=== PATIENT | female | born 1985 | race African-American/Black ===

== ENCOUNTER 2017-09-17 12:06 | Emergency (ER) | payer MEDICAID, OTHER ==
[~2017-09-17] VITALS: Ht 172.7 cm; Wt 87.0 kg
[2017-09-17] MEDS ORDERED: SODIUM CHLORIDE 0.9% 1,000 ML IV ONE (15:00)
[2017-09-17 15:29] LABS: BASOPHILS % 0.6 % (0.0-2.0); EOSINOPHILS % 0.3 % (0.0-5.0); HEMATOCRIT. 34.8 % (36.0-48.0); HEMOGLOBIN. 11.1 g/dL (12.0-16.0); LYMPHOCYTES % 33.2 % (20.0-50.0); MEAN CORPUSCULAR HEMOGLOBIN 27.8 pg (28.0-32.0); MEAN CORPUSCULAR VOLUME 87.1 fL (81.0-99.0); MEAN PLATELET VOLUME 7.6 fl (7.4-10.4); MONOCYTES % 5.5 % (2.0-8.0); NEUTROPHILS % 60.4 % (40.0-76.0); PLATELET 307 x1000/uL (130-400); RED CELL DISTRIBUTION WIDTH 15.2 % (11.6-14.6)
[2017-09-17 15:32] LABS: CHLORIDE 106 mEq/L (98-107)
[2017-09-17 15:37] LABS: CARBON DIOXIDE 27 mEq/L (21-32)
[2017-09-17] MEDS ORDERED: HYDROCODONE/ACETAMINOPHEN 5/325MG TABLET PO ONE (21:00)
[2017-09-17] MEDS ORDERED: AMOXICILLIN/POTASSIUM CLAVULANATE 875/125MG TAB PO ONE (21:00)
[2017-09-17 21:50] VITALS: BP 111/81
== END 2017-09-17 21:59 | disposition home or self-care (01) ==
LOC: ER 15:02
DX: S63.501A Unspecified sprain of right wrist, initial encounter (principal); L03.113 Cellulitis of right upper limb; R55 Syncope and collapse; R06.09 Other forms of dyspnea; W18.39XA Other fall on same level, initial encounter; Y93.89 Activity, other specified; Y92.89 Other specified places as the place of occurrence of the external cause; Y99.8 Other external cause status
CPT/HCPCS: 29125; 36415; 73110; 80048; 81025; 85025; 93005; 96360; 99285; Z7610; J7030

== ENCOUNTER 2019-07-07 16:56 | Emergency (ER) | payer MEDICAID, OTHER ==
[~2019-07-07] VITALS: Ht 175.3 cm; Wt 91.0 kg
[2019-07-07] MEDS ORDERED: SODIUM CHLORIDE 0.9% 1,000 ML IV ONE (17:42)
[2019-07-07] MEDS ORDERED: LORAZEPAM 1MG TABLET PO ONE (17:45)
[2019-07-07 18:11] LABS: BASOPHILS % 0.7 % (0.0-2.0); EOSINOPHILS % 0.1 % (0.0-5.0); HEMATOCRIT. 33.2 % (36.0-48.0); HEMOGLOBIN. 10.9 g/dL (12.0-16.0); LYMPHOCYTES % 22.1 % (20.0-50.0); MEAN CORPUSCULAR HEMOGLOBIN 28.6 pg (28.0-32.0); MEAN CORPUSCULAR VOLUME 87.2 fL (81.0-99.0); MEAN PLATELET VOLUME 7.7 fl (7.4-10.4); MONOCYTES % 5.2 % (2.0-8.0); NEUTROPHILS % 71.9 % (40.0-76.0); PLATELET 293 x1000/uL (130-400); RED BLOOD CELL COUNT 3.81 mill/uL (4.2-5.4); RED CELL DISTRIBUTION WIDTH 15.3 % (11.6-14.6)
[2019-07-07 18:18] LABS: CHLORIDE 108 mEq/L (98-107)
[2019-07-07 18:22] LABS: HCG SCREEN POSITIVE
[2019-07-07 21:22] LABS: CLARITY URINE CLEAR (CLEAR); COLOR URINE YELLOW (YELLOW); KETONES URINE 1+ (NEGATIVE); LEUKOCYTE ESTERASE URINE NEGATIVE (NEGATIVE); NITRITE URINE NEGATIVE (NEGATIVE); OCCULT BLOOD URINE NEGATIVE (NEGATIVE); PH URINE 7.5 (4.5-8.0); PROTEIN URINE TRACE (NEGATIVE); SPECIFIC GRAVITY URINE 1.007 (1.005-1.030); UROBILINOGEN URINE 0.2 E.U./dL (0.2-1.0)
[2019-07-07 22:30] VITALS: BP 115/82
[2019-07-08 08:45] LABS: BASOPHILS % 0.4 % (0.0-2.0); EOSINOPHILS % 0.3 % (0.0-5.0); HEMOGLOBIN. 10.2 g/dL (12.0-16.0); LYMPHOCYTES % 22.9 % (20.0-50.0); MEAN CORPUSCULAR HEMOGLOBIN 28.5 pg (28.0-32.0); MEAN CORPUSCULAR VOLUME 86.7 fL (81.0-99.0); MEAN PLATELET VOLUME 7.8 fl (7.4-10.4); MONOCYTES % 5.7 % (2.0-8.0); NEUTROPHILS % 70.7 % (40.0-76.0); PLATELET 262 x1000/uL (130-400); RED BLOOD CELL COUNT 3.58 mill/uL (4.2-5.4); RED CELL DISTRIBUTION WIDTH 15.1 % (11.6-14.6)
[2019-07-08 08:50] LABS: CHLORIDE 109 mEq/L (98-107)
== END 2019-07-07 22:46 | disposition home or self-care (01) ==
LOC: ER 16:56
DX: O26.892 Other specified pregnancy related conditions, second trimester (principal); K29.70 Gastritis, unspecified, without bleeding; O99.342 Other mental disorders complicating pregnancy, second trimester; F41.9 Anxiety disorder, unspecified; O99.012 Anemia complicating pregnancy, second trimester; Z3A.22 22 weeks gestation of pregnancy
CPT/HCPCS: 36415; 76805; 80053; 81003; 83690; 84702; 84703; 85025; 86850; 86900; 86901; 96360; 96361; 99284; J7030

== ENCOUNTER 2019-07-08 01:27 | Inpatient (IN) | payer MEDICAID ==
[~2019-07-08] VITALS: Ht 175.3 cm; Wt 127.0 kg
[2019-07-08] MEDS ORDERED: SODIUM CHLORIDE 0.9% 1,000 ML IV ONE (09:20)
[2019-07-08 09:41] LABS: BASOPHILS % 0.4 % (0.0-2.0); EOSINOPHILS % 0.2 % (0.0-5.0); HEMATOCRIT. 29.4 % (36.0-48.0); HEMOGLOBIN. 9.8 g/dL (12.0-16.0); LYMPHOCYTES % 24.2 % (20.0-50.0); MEAN CORPUSCULAR HEMOGLOBIN 28.7 pg (28.0-32.0); MEAN PLATELET VOLUME 7.8 fl (7.4-10.4); MONOCYTES % 7.1 % (2.0-8.0); NEUTROPHILS % 68.1 % (40.0-76.0); PLATELET 284 x1000/uL (130-400); RED BLOOD CELL COUNT 3.43 mill/uL (4.2-5.4); RED CELL DISTRIBUTION WIDTH 15.5 % (11.6-14.6)
[2019-07-08 09:48] LABS: CHLORIDE 109 mEq/L (98-107)
[2019-07-08] MEDS ORDERED: ONDANSETRON HCL 4MG/2ML INJ IV PRN (12:30)
[2019-07-08 13:07] LABS: PHOSPHORUS 3.4 mg/dL (2.5-4.9)
[2019-07-08 14:55] VITALS: BP 104/48
[2019-07-08 15:59] VITALS: BP 104/48
[2019-07-08 20:38] VITALS: BP 108/51
[2019-07-08] MEDS: ACETAMINOPHEN 325MG TABLET PO PRN (21:22)
[2019-07-09 00:32] VITALS: BP 95/54
[2019-07-09 04:00] VITALS: BP 106/40
[2019-07-09 05:44] LABS: BASOPHILS % 0.5 % (0.0-2.0); EOSINOPHILS % 0.8 % (0.0-5.0); HEMATOCRIT. 27.7 % (36.0-48.0); HEMOGLOBIN. 9.3 g/dL (12.0-16.0); MEAN CORPUSCULAR HEMOGLOBIN 28.6 pg (28.0-32.0); MEAN CORPUSCULAR VOLUME 85.4 fL (81.0-99.0); MEAN PLATELET VOLUME 7.8 fl (7.4-10.4); NEUTROPHILS % 53.7 % (40.0-76.0); PLATELET 265 x1000/uL (130-400); RED BLOOD CELL COUNT 3.24 mill/uL (4.2-5.4); RED CELL DISTRIBUTION WIDTH 15.4 % (11.6-14.6)
[2019-07-09 06:01] LABS: CHLORIDE 108 mEq/L (98-107)
[2019-07-09 06:10] LABS: LDL CHOLESTEROL 96 mg/dL (5-100)
[2019-07-09 06:11] LABS: HDL CHOLESTEROL 37 mg/dL (40-59)
[2019-07-09 08:00] VITALS: BP 102/53
[2019-07-09] MEDS: ACETAMINOPHEN 325MG TABLET PO PRN (09:44)
[2019-07-09 12:00] VITALS: BP 111/59
[2019-07-09] MEDS ORDERED: IPRATROPIUM/ALBUTEROL 0.5-3(2.5)MG/3ML NEB HHN PRN (13:00)
[2019-07-09] MEDS: PRENATAL VIT/FE FUMARATE/FA TABLET PO SCH (15:29)
[2019-07-09 16:00] VITALS: BP 117/70
[2019-07-09] MEDS: DOCUSATE SODIUM 100MG CAPSULE PO SCH (16:52)
[2019-07-09 20:21] LABS: TOTAL IRON BINDING CAPACITY 384 ug/dL (250-450)
[2019-07-09 20:52] VITALS: BP 105/48
[2019-07-10 00:53] VITALS: BP 106/61
[2019-07-10 04:00] VITALS: BP 99/43
[2019-07-10 08:00] VITALS: BP 109/58
[2019-07-10] MEDS: DOCUSATE SODIUM 100MG CAPSULE PO SCH ×2 (10:08→19:33)
[2019-07-10] MEDS: PRENATAL VIT/FE FUMARATE/FA TABLET PO SCH (10:13)
[2019-07-10 12:00] VITALS: BP 112/58
[2019-07-10] MEDS: ACETAMINOPHEN 325MG TABLET PO PRN (14:57)
[2019-07-10 16:00] VITALS: BP 114/78
[2019-07-10 19:09] VITALS: BP 114/72
== END 2019-07-10 19:35 | disposition home or self-care (01) | DRG 566 ==
LOC: ER 01:27 → EDBEDREQ 12:21 → ENRESERV 13:42 → 6WST 14:52
PROVIDERS: ADMIT Internal Medicine; ATTEND Internal Medicine
DX: O99.512 Diseases of the respiratory system complicating pregnancy, second trimester (principal); J96.00 Acute respiratory failure, unspecified whether with hypoxia or hypercapnia; O99.012 Anemia complicating pregnancy, second trimester; J30.9 Allergic rhinitis, unspecified; Z3A.22 22 weeks gestation of pregnancy; M94.0 Chondrocostal junction syndrome [Tietze]; D64.9 Anemia, unspecified; I07.1 Rheumatic tricuspid insufficiency
CPT/HCPCS: 36415; 78580; 80061; 82728; 83540; 83550; 83735; 84100; 84443; 84484; 85379; 86850; 86900; 93005; 93306; 93970; 99285; J2405; J7030

== ENCOUNTER 2019-08-21 14:27 | Observation (INO) | payer MEDICAID ==
[~2019-08-21] VITALS: Ht 175.3 cm; Wt 104.3 kg
[2019-08-21] MEDS ORDERED: PREN1TAB78 MT (14:40)
[2019-08-21] MEDS ORDERED: SODIUM CHLORIDE 0.9% 1,000 ML IV SCH (15:00)
[2019-08-21 15:31] LABS: BASOPHILS % 0.5 % (0.0-2.0); EOSINOPHILS % 0.2 % (0.0-5.0); HEMATOCRIT. 32.5 % (36.0-48.0); HEMOGLOBIN. 10.5 g/dL (12.0-16.0); MEAN CORPUSCULAR HEMOGLOBIN 28.5 pg (28.0-32.0); MEAN CORPUSCULAR VOLUME 88.2 fL (81.0-99.0); MEAN PLATELET VOLUME 8.3 fl (7.4-10.4); MONOCYTES % 5.4 % (2.0-8.0); NEUTROPHILS % 73.9 % (40.0-76.0); PLATELET 272 x1000/uL (130-400); RED BLOOD CELL COUNT 3.69 mill/uL (4.2-5.4); RED CELL DISTRIBUTION WIDTH 16.2 % (11.6-14.6)
[2019-08-21] MEDS ORDERED: ACETAMINOPHEN 325MG TABLET PO NR (16:15)
== END 2019-08-21 16:38 | disposition home or self-care (01) ==
LOC: 8 EST LDRP 14:27
PROVIDERS: ADMIT Obstetrics & Gynecology; ATTEND Obstetrics & Gynecology
DX: O26.892 Other specified pregnancy related conditions, second trimester (principal); R42 Dizziness and giddiness; O21.2 Late vomiting of pregnancy; Z3A.27 27 weeks gestation of pregnancy
CPT/HCPCS: 36415; 85025; 96360; 99281; G0378; J7030

== ENCOUNTER 2019-08-21 18:34 | Emergency (ER) | payer MEDICAID ==
[~2019-08-21] VITALS: Ht 175.3 cm; Wt 104.0 kg
[~2019-08-21 18:34] MED LIST: PREN1TAB78 MT
[2019-08-21] MEDS ORDERED: SODIUM CHLORIDE 0.9% 1,000 ML IV ONE (21:16)
[2019-08-21] MEDS ORDERED: FAMOTIDINE 20MG/2ML VIAL IV STA (21:16)
[2019-08-21] MEDS ORDERED: MAGNESIUM/ALUMINUM HYDROXIDE/SIMETHICONE 30ML UDC PO ONE (21:30)
[2019-08-21 23:44] LABS: CHLORIDE 108 mEq/L (98-107)
[2019-08-21 23:47] LABS: BASOPHILS % 0.5 % (0.0-2.0); EOSINOPHILS % 0.2 % (0.0-5.0); HEMATOCRIT. 33.8 % (36.0-48.0); HEMOGLOBIN. 10.8 g/dL (12.0-16.0); LYMPHOCYTES % 31.3 % (20.0-50.0); MEAN CORPUSCULAR HEMOGLOBIN 28.7 pg (28.0-32.0); MEAN CORPUSCULAR VOLUME 89.4 fL (81.0-99.0); MEAN PLATELET VOLUME 8.5 fl (7.4-10.4); MONOCYTES % 5.4 % (2.0-8.0); NEUTROPHILS % 62.6 % (40.0-76.0); PLATELET 286 x1000/uL (130-400); RED BLOOD CELL COUNT 3.78 mill/uL (4.2-5.4); RED CELL DISTRIBUTION WIDTH 16.4 % (11.6-14.6)
[2019-08-22 01:30] LABS: CLARITY URINE CLOUDY (CLEAR); COLOR URINE YELLOW (YELLOW); KETONES URINE 4+ (NEGATIVE); LEUKOCYTE ESTERASE URINE NEGATIVE (NEGATIVE); NITRITE URINE NEGATIVE (NEGATIVE); OCCULT BLOOD URINE NEGATIVE (NEGATIVE); PROTEIN URINE TRACE (NEGATIVE); SPECIFIC GRAVITY URINE 1.034 (1.005-1.030)
[2019-08-22 01:48] VITALS: BP 88/65
== END 2019-08-22 01:57 | disposition home or self-care (01) ==
LOC: ER 18:34
DX: K29.70 Gastritis, unspecified, without bleeding (principal); K21.0 Gastro-esophageal reflux disease with esophagitis; R06.02 Shortness of breath; F41.9 Anxiety disorder, unspecified
CPT/HCPCS: 36415; 80053; 81003; 83690; 83880; 84484; 85025; 93005; 96361; 96374; 99284; J3490; J7030